=== PATIENT | male | born 1970 | race African-American/Black ===

== ENCOUNTER 2021-03-21 04:37 | Day surgery (SDC) | payer OTHER ==
[2021-03-19 17:56] VITALS: BMI 27.3
[2021-03-21] MEDS ORDERED: DEXAMETHASONE SOD PHOSPHATE 4 MG/1 ML VIAL ONE (08:40)
[2021-03-21] MEDS ORDERED: PROPOFOL 20 ML ONE ×3 (08:40→09:52)
[2021-03-21] MEDS ORDERED: SUCCINYLCHOLINE CHLORIDE 200 MG/10 ML SYRINGE ONE ×2 (08:41→09:52)
[2021-03-21] MEDS ORDERED: MIDAZOLAM HCL 2 MG/2 ML SINGLE DOSE VIAL ONE ×5 (08:42→09:54)
[2021-03-21] MEDS ORDERED: ROCURONIUM BROMIDE 50 MG/5 ML SYRINGE ONE ×2 (08:45→09:53)
[2021-03-21] MEDS ORDERED: ATROPINE SULFATE 1 MG/10 ML DISP.SYRIN ONE (09:52)
[2021-03-21] MEDS ORDERED: LIDOCAINE 1%/EPI 1:100000 (20 ML MULTI DOSE VIAL) ONE (09:54)
[2021-03-21] MEDS ORDERED: COCAINE HCL 4% TOPICAL SOLUTION 4 ML BOTTLE TP ONE ×3 (09:55→10:50)
[2021-03-21] MEDS ORDERED: LIDOCAINE 1%/EPI 1:100000 (20 ML MULTI DOSE VIAL) IJ ONE ×2 (10:50)
[2021-03-21] MEDS ORDERED: oxyCODONE HCL 5 MG TABLET PO PRN (10:59)
[2021-03-21] MEDS ORDERED: ONDANSETRON 4 MG/2 ML VIAL IVPUSH PRN (10:59)
[2021-03-21] MEDS ORDERED: LACTATED RINGERS SOLUTION 1,000 ML IV SCH (11:00)
[2021-03-21] MEDS ORDERED: NEOSTIGMINE METHYLSULFATE 0.5 MG/ML - 10 ML MDV ONE (11:44)
[2021-03-21] MEDS ORDERED: GLYCOPYRROLATE 0.2 MG/1 ML VIAL ONE (11:44)
[2021-03-21 13:27] VITALS: TEMP 98
[2021-03-21 14:28] VITALS: PULSE 70
[2021-03-21 15:20] VITALS: BP 120/80
== END 2021-03-21 15:30 | disposition home or self-care (01) ==
LOC: JASU-SURG 04:37
PROVIDERS: ATTEND Otolaryngology
PROC: 09BM0ZX Excision of Nasal Septum, Open Approach, Diagnostic (ICD-10-PCS; principal; 2021-03-21 09:00)
DX: D14.0 Benign neoplasm of middle ear, nasal cavity and accessory sinuses (principal); I10 Essential (primary) hypertension
CPT/HCPCS: 94760